=== PATIENT | female | born 1950 | race African-American/Black ===

== ENCOUNTER 2019-08-30 09:22 | Day surgery (SDC) | payer OTHER ==
[2019-08-29 15:28] VITALS: BMI 25.2
[2019-08-30] MEDS ORDERED: ISOSULFAN BLUE 10 MG/ML VIAL SQ ONE (14:06)
[2019-08-30] MEDS ORDERED: LIDOCAINE HCL 1%, 10 MG/ML (20ML VIAL) ONE (14:06)
[2019-08-30] MEDS ORDERED: MIDAZOLAM HCL 2 MG/2 ML SINGLE DOSE VIAL ONE (14:14)
[2019-08-30] MEDS ORDERED: PROPOFOL 20 ML ONE (14:14)
[2019-08-30] MEDS ORDERED: DEXMEDETOMIDINE HCL 200 MCG/2 ML IVPB ONE (14:15)
[2019-08-30] MEDS ORDERED: SUCCINYLCHOLINE CHLORIDE 200 MG/10 ML SYRINGE ONE (14:40)
[2019-08-30] MEDS ORDERED: EPHEDRINE SULFATE/0.9% NACL/PF 50 MG/10 ML SYRINGE NR ONE (14:40)
[2019-08-30] MEDS ORDERED: ROCURONIUM BROMIDE 50 MG/5 ML SYRINGE ONE (14:42)
[2019-08-30] MEDS ORDERED: ceFAZolin 2 GRAM PREMIX BAG IVPB ONE (14:45)
[2019-08-30] MEDS ORDERED: ePHEDrine SULFATE 50 MG/1 ML AMPULE ONE (14:58)
[2019-08-30] MEDS ORDERED: ONDANSETRON 4 MG/2 ML VIAL IVPUSH PRN (15:23)
[2019-08-30] MEDS ORDERED: LACTATED RINGERS SOLUTION 1,000 ML IV SCH ×2 (15:30→17:30)
[2019-08-30] MEDS ORDERED: oxyCODONE HCL 5 MG TABLET ONE (17:01)
--- NOTE | 2019-08-30 17:02 | OP ---
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 PROCEDURE: Wire-localized lumpectomy and sentinel node biopsy. SURGEON: Zoya Graf MD. ANESTHESIA: General. ESTIMATED BLOOD LOSS: 100 mL. DRAINS: None. This was a sterile procedure. INDICATION FOR PROCEDURE: The patient presented with a screening mammogram and ultrasound that noted 2 abnormalities in the left 11 o'clock and 12 o'clock locations. Needle biopsies of these were done by the radiologist, and the 12 o'clock showed invasive carcinoma, and the 11 o'clock showed a fibroadenoma with lobular carcinoma in situ. My recommendation was for lumpectomy for both of these areas, as well as the sentinel node biopsy. The procedure was discussed with all the questions answered. PROCEDURE IN DETAIL: Patient brought to [facility] in [place], taken to breast imaging, where wire localized the clip in the left 11 o'clock and 12 o'clock location. She was then brought to nuclear medicine where I injected technetium sulfur colloid as an intradermal injection x2 in the left 12 o'clock areolar border. She was then brought up to the operating room. After induction of general anesthesia and IV antibiotics, the periareolar area was cleansed with alcohol and 5 mL of isosulfan blue dye was injected into the left subareolar plexus by me, and the breast was massaged for 5 minutes. The left breast and axilla were then prepped and draped in usual sterile fashion. A 4-cm incision made in the left axilla, carried down to the clavipectoral fascia to identify 3 sentinel lymph nodes. The 1st one was blue and hot, the 2nd was blue and hot, the 3rd one was hot but not blue. There was no other blue dye, radioactivity or pathologic appearing lymph nodes in the left axilla; therefore, once hemostasis was assured, the left breast lumpectomy was performed. A curvilinear incision was made in the left 12 o'clock location, and both the wires were used as a guide to get down to excise en bloc as 1 lumpectomy to include both the areas of interest. This was tagged with a long suture lateral, short suture superior, sent for specimen radiograph. Hemostasis was assured with electrocautery. The specimen radiograph showed the clip and wire to be intact in the specimen, what appeared to be adequate margins around this. The specimen was then sent to Pathology for permanent section. Hemostasis assured with electrocautery. The parenchyma approximated with interrupted 2-0 Vicryl, skin approximated with interrupted 2-0 Vicryl and running 4-0 Prolene. A sterile dressing with Tegaderm, 4x4s was applied. The axillary incision was also closed in a routine fashion with interrupted 3-0 Vicryl, running 4-0 Prolene with sterile dressing with Tegaderm, 4x4s applied. A mammary binder was placed in the operating room. She was extubated in the operating room and taken to Recovery in good condition. ZOYA GRAF M.D. [id number]
[2019-08-30] MEDS ORDERED: oxyCODONE HCL 5 MG TABLET PO PRN (17:18)
[2019-08-30 18:24] VITALS: BP 132/52; PULSE 78; TEMP 98
--- NOTE | 2019-09-05 11:22 | PATH ---
Surgical Pathology Report Patient Name: PAVAN CERVANTES [facility]. Rec. #: [id number] /Age/Gender: 1950 (Age: 68) / F Account: [id number] Location: [facility] SURGICAL Taken: 08/30/2019 Received: 08/30/2019 Reported: 09/05/2019 Physicians: Zoya Wynn M.D. Specimen(s) Received A: LEFT BREAST MASS B: LEFT AXILLARY SENTINEL LYMPH NODE HOT AND BLUE #1 C: LEFT AXILLARY SENTINEL LYMPH NODE HOT AND BLUE #2 D: LEFT AXILLARY SENTINEL LYMPH NODE HOT NOT BLUE #3 Clinical History Left breast cancer 12:00, left breast fibroadenoma with LCIS 11:00 Final Diagnosis A. BREAST, LEFT, LUMPECTOMY: INVASIVE DUCTAL CARCINOMA, WELL DIFFERENTIATED (TUBULE SCORE: 2/3, NUCLEAR GRADE: 2/3, MITOTIC SCORE: 1/3; TOTAL KAVON SCORE: 5/9), AND ASSOCIATED MICROCALCIFICATIONS. INVASIVE CARCINOMA MEASURES 1.2 CM IN GREATEST MICROSCOPIC DIMENSION. EXTENSIVE DUCTAL CARCINOMA IN SITU (DCIS), INTERMEDIATE NUCLEAR GRADE, CRIBRIFORM AND PAPILLARY TYPES WITH FOCAL NECROSIS. LOBULAR CARCINOMA IN SITU (LCIS), CLASSICAL TYPE, INVOLVING FIBROADENOMA AND SCLEROSING ADENOSIS. INVASIVE CARCINOMA ADMIXED WITH DCIS AND LCIS. NO LYMPHOVASCULAR INVASION IDENTIFIED. SURGICAL MARGINS ARE UNINVOLVED BY INVASIVE CARCINOMA AND DCIS; CARCINOMA IS 5 MM FROM CLOSEST MEDIAL AND LATERAL MARGINS. PRIOR BIOPSY SITE CHANGES ARE PRESENT. SURROUNDING BREAST PARENCHYMA SHOWS FIBROCYSTIC CHANGES INCLUDING STROMAL FIBROSIS, MICROCYSTS, COLUMNAR CELL CHANGES, SCLEROSING ADENOSIS, AND ASSOCIATED MICROCALCIFICATIONS. PATHOLOGIC STAGE (pTNM): pT1c pN0(sn). SEE CASE SUMMARY BELOW. B. AXILLARY SENTINEL LYMPH NODE #1, LEFT, HOT AND BLUE, EXCISION: ONE LYMPH NODE NEGATIVE FOR CARCINOMA (0/1). C. AXILLARY SENTINEL LYMPH NODE #2, LEFT, HOT AND BLUE, EXCISION: ONE LYMPH NODE NEGATIVE FOR CARCINOMA (0/1). D. AXILLARY SENTINEL LYMPH NODE #3, LEFT, HOT NOT BLUE, EXCISION: ONE LYMPH NODE NEGATIVE FOR CARCINOMA (0/1). Comment: Immunohistochemical stains performed at [place], [place] ([id number]) and interpreted at [facility] show E-cadherin is positive in the invasive carcinoma and DCIS, while negative in LCIS. Myoepithelial markers (P40 and SMM-HC) are retained in the areas of DCIS and LCIS. Positive and negative controls (internal if applicable) show appropriate results. Comments Breast Invasive Carcinoma: Surgical Pathology Case Summary (Based on AJCC TNM 8 th edition) Procedure _X_ Excision (less than total mastectomy) Specimen Laterality _X_ Left Tumor Size _X_ Greatest dimension of largest invasive focus >1 mm (millimeters): 12 mm Histologic Type _X_ Invasive carcinoma of no special type (ductal, not otherwise specified) Histologic Grade (Laredo Histologic Score) Glandular (Acinar)/Tubular Differentiation _X_ Score 2 (10% to 75% of tumor area forming glandular/tubular structures) Nuclear Pleomorphism _X_ Score 2 Mitotic Rate _X_ Score 1 Overall Grade _X_ Grade 1 (scores of 5) Tumor Focality _X_ Single focus of invasive carcinoma Ductal Carcinoma In Situ (DCIS) _X_ DCIS is present in specimen _X Positive for extensive intraductal component (EIC) Margins Invasive Carcinoma Margins _X_ Uninvolved by invasive carcinoma Distance from closest margin (millimeters): 5 mm Closest margin: Medial and Lateral DCIS Margins _X_ Uninvolved by DCIS Distance from closest margin (millimeters): 5 mm Closest margin: Medial and Lateral Regional Lymph Nodes _X_ Uninvolved by tumor cells Number of Lymph Nodes Examined: 3 Number of [place] Nodes Examined: 3 Treatment Effect _X_ No known presurgical therapy Lymphovascular Invasion _X_ Not identified Pathologic Stage Classification (pTNM, AJCC 8th Edition) Primary Tumor (Invasive Carcinoma) (pT) _X_ pT1c: Tumor >10 mm but =20 mm in greatest dimension Regional Lymph Nodes (pN) Category (pN) _X_ pN0: No regional lymph node metastasis identified or ITCs only Biomarker Studies Results of ER, TN, Her2 (IHC), & Ki-67 studies performed on this specimen (block# A1) at [place], [place] ([id number]) are as follows: ER (clone [id number] mouse monoclonal antibody by [employer]): 100% nuclear staining with strong intensity (Positive). TN (clone16 mouse monoclonal antibody by [employer]):>90% nuclear staining with moderate to strong intensity (Positive). Her2 IHC (EP3 from [employer], formerly known as [id number], using [employer] Polymer Refine detection kit): 1+ (Negative) Ki67: ~5% (Low proliferative index). Formalin fixation time exceeds current ASCO/CAP recommendations for ER,TN & Her2 testing (6-72 hrs). Negative results must be interpreted with caution as false negatives may occur. Cold ischemic time is within recommended guidelines/Time to formalin fixation is not given. Electronically Signed Lucita Noble M.D. Gross Description A. Received fresh on an AccuGrid, labeled with the patient's name and indicated on the requisition to be a left breast lumpectomy is a 7.0 x 5.0 x 3.2 cm. rm-yellow, irregular, portion of fibroadipose tissue with 2 needle localization wires present. There is a short suture marking the superior aspect and a long suture marking the lateral aspect, per the surgeon. There is no skin or nipple present. The specimen is inked as follows: Superior blue; inferior green; anterior and lateral red; medial yellow; deep black. The specimen is serially sectioned from anterior to deep. Sectioning reveals a 1.2 x 1.0 x 1.0 cm rm, ill-defined, indurated, focally hemorrhagic mass. There is a miranda metallic biopsy clip identified within the mass. The mass is 0.5 cm from the medial margin, focally 0.5 cm from the superior margin, 0.7 cm from the lateral margin and 1.0 cm from the inferior margin. There is an additional 1.2 x 0.8 x 0.8 cm rm, well-circumscribed mass at 0.2 cm from the deep margin, 0.3 cm from the medial margin, 0.8 cm from the inferior margin and 0.9 cm from the lateral margin. This second mass is 1.0 cm posterior to the first mass. Stock Sorter sections are submitted in 7 cassettes as follows: 1-full face section of first mass with clip (with medial and superior margins); 2-additional section of first mass (with medial, lateral and inferior margins); 3-full face section of second mass (with medial, lateral and inferior margins); 4-additional section of second mass with medial margin; 5-6-second mass with deep margin; 7-anterior margin. Total formalin fixation time: Approximately 74 hours. B. Received in formalin labeled "left axillary sentinel lymph node #1," is a 1.1 x 0.9 x 0.6 cm lymph node with attached fat. The specimen is bisected and entirely submitted in one cassette. C. Received in formalin labeled "left axillary sentinel lymph node #2," is a 0.5 x 0.3 x 0.2 cm lymph node with attached fat. The specimen is submitted in toto in one cassette. D. Received in formalin labeled "left axillary sentinel lymph node #3," is a 1.2 x 0.8 x 0.5 cm lymph node with attached fat. The specimen is bisected and entirely submitted in one cassette. 09/02/2019 [facility]09/02/2019
== END 2019-08-30 18:29 | disposition home or self-care (01) ==
LOC: JASU-SURG 09:22
PROVIDERS: ATTEND Surgery
PROC: 0HBU0ZZ Excision of Left Breast, Open Approach (ICD-10-PCS; principal; 2019-08-30 12:00)
DX: C50.912 Malignant neoplasm of unspecified site of left female breast (principal); D05.02 Lobular carcinoma in situ of left breast
CPT/HCPCS: 19281; 19282; 76098-TC-FY; 78195-TC; 82962; 94760; A9541

== ENCOUNTER → 2023-08-14 | Day surgery (SDC) | payer OTHER | END | disposition home or self-care (01) | LOC: FMAMMOTONE 09:28 | PROVIDERS: ATTEND Surgery | PROC: 0HBT3ZX Excision of Right Breast, Percutaneous Approach, Diagnostic (ICD-10-PCS; principal; 2023-08-14) | DX: D24.1 Benign neoplasm of right breast (principal); N60.11 Diffuse cystic mastopathy of right breast; N60.31 Fibrosclerosis of right breast; N64.89 Other specified disorders of breast; R92.8 Other abnormal and inconclusive findings on diagnostic imaging of breast | CPT/HCPCS: 19081; 76098-TC-FY; 87899; 88305-TC; A4648 ==